=== PATIENT | male | born 1955 | race Caucasian/White ===

== ENCOUNTER 2016-10-03 14:55 | Emergency (ER) | payer MEDICARE, OTHER ==
[~2016-10-03] VITALS: Ht 180.3 cm; Wt 126.6 kg
[~2016-10-03 14:55] MED LIST: IPRA14.7 INH; METO25TA PO
[2016-10-03 15:16] VITALS: BP 156/86
[2016-10-03] MEDS ORDERED: INSU10SU8 SUBQ (15:24)
[2016-10-03] MEDS ORDERED: HYDROcodone/APAP 10/325 MG 1 TAB TAB PO PRN (16:40)
--- NOTE | 2016-10-03 17:19 | NUR ---
61/M BIB FRIEND C/O SKIN REDNESS AND SWELLING UNDER RIGHT AXILLARY AREA X 1 DAY. PT STAES HE HELPED A FRIEND CLEAN OUT THEIR GARAGE LAST NIGHT, NOTICED SKIN REDNESS AND SWELLING UNDER RIGHT AXILLARY AREA THIS AM. HX DM, HTN. PT DENIES N/V/D; SKIN IS PINK/WARM/DRY; AAOX4 WITH EVEN AND STEADY GAIT; LUNGS CLEAR BL; HR EVEN AND REGULAR; PT DENIES ANY FEVER, CP, SOB, OR COUGH AT THIS TIME; PATIENT STATES PAIN OF 7/10 AT THIS TIME. PATIENT POSITIONED FOR COMFORT; HOB ELEVATED; BEDRAILS UP X2; BED DOWN. ER MD MADE AWARE OF PT STATUS.
[2016-10-03] MEDS ORDERED: LIDOCAINE 2% 1000 MG/50 ML VIAL INJ ONE (17:35)
[2016-10-03 18:10] VITALS: BP 157/87
--- NOTE | 2016-10-03 18:10 | NUR ---
Patient discharged with v/s stable. Written and verbal after care instructions given and explained. Patient alert, oriented and verbalized understanding of instructions. Ambulatory with steady gait. All questions addressed prior to discharge. ID band removed. Patient advised to follow up with PMD. Rx of CLINDAMYCIN & NORCO given. Patient educated on indication of medication including possible reaction and side effects. Opportunity to ask questions provided and answered.
== END 2016-10-03 17:48 | disposition home or self-care (01) ==
LOC: MED 14:55
DX: L02.411 Cutaneous abscess of right axilla (principal); E11.9 Type 2 diabetes mellitus without complications
CPT/HCPCS: 10060; 82948; 99283; J2001

== ENCOUNTER 2018-03-20 11:19 | Emergency (ER) | payer OTHER ==
[~2018-03-20] VITALS: Ht 180.3 cm; Wt 122.5 kg
[~2018-03-20 11:19] MED LIST changes: +INSU10SU8 SUBQ
[2018-03-20 11:40] VITALS: BP 101/76
--- NOTE | 2018-03-20 11:40 | NUR ---
pt amb to bed 11
[2018-03-20] MEDS ORDERED: ONDANSETRON 4 MG/2 ML VIAL IVP ONE (11:45)
[2018-03-20] MEDS ORDERED: NACL 0.9% 1,000 ML IV SCH (11:45)
[2018-03-20] MEDS ORDERED: MORPHINE SULFATE 4 MG/ML SYR IM ONE (11:45)
--- NOTE | 2018-03-20 11:47 | NUR ---
Patient being evaluated by physician at bedside.
--- NOTE | 2018-03-20 12:02 | NUR ---
Patient returned from CT scan. RN re-evaluating patient at bedside.
--- NOTE | 2018-03-20 12:10 | NUR ---
62y/m bib self c/o generalized abd pain with dysuria x 3 days, denies n/v/d, +fevers. pt states" he has not eatten anything in 3 days due to ab pain. bed down; bedrail up x 1; er md aware and notified of pt status. med hx: dm, htn, heart attacks unknown what type rx: insulin
[2018-03-20 12:24] LABS: BASOPHILS % (AUTO) 0.2 % (0.0-2.0); EOSINOPHILS # (AUTO) 0.1 K/uL (0-0.4); EOSINOPHILS % (AUTO) 0.7 % (0.0-4.0); HEMATOCRIT 43.5 % (36-52); LYMPHOCYTES # (AUTO) 1.1 K/uL (2.0-11.5); LYMPHOCYTES % (AUTO) 8.4 % (20.5-51.1); MEAN CORPUSCULAR HEMOGLOBIN 30 pg (27-31); MEAN CORPUSCULAR HGB CONC 34 g/dL (33-37); MEAN CORPUSCULAR VOLUME 87.7 fL (80-94); NEUTROPHILS # (AUTO) 10.5 K/uL (1.8-7.7); NEUTROPHILS % (AUTO) 82.7 % (42.2-75.2); PLATELET COUNT (AUTO) 124 K/uL (140-450); RED BLOOD CELL COUNT(AUTO) 4.97 MIL/uL (4.20-6.10); RED CELL DISTRIBUTION WIDTH 13.4 % (11.6-13.7); WHITE BLOOD COUNT (AUTO) 12.7 K/uL (4.8-10.8)
[2018-03-20 12:36] LABS: APPEARANCE,URINE HAZY (CLEAR); BILIRUBIN,URINE NEGATIVE (NEGATIVE); COLOR,URINE YELLOW (YELLOW); LEUKOCYTE ESTERASE ,URINE 1+ (NEGATIVE); NITRITE, URINE POSITIVE (NEGATIVE); UGLUCOSE 3+ (NEGATIVE)
[2018-03-20 12:48] LABS: ANION GAP 15.2 (8-16); CARBON DIOXIDE 22.7 mmol/L (21-32); CREATININE 0.9 mg/dL (0.7-1.3); POTASSIUM 3.9 mmol/L (3.5-5.1)
[2018-03-20 12:52] LABS: WBC,URINE 16-25 (MOD) /HPF (0-5)
[2018-03-20 12:53] LABS: BLOOD, URINE TRACE (NEGATIVE); RBC,URINE 0-5 (RARE) /HPF (0-5)
[2018-03-20 13:03] LABS: ALBUMIN 3.4 g/dL (3.4-5.0); TOTAL BILIRUBIN 1.9 mg/dL (0.0-1.0)
[2018-03-20 13:31] VITALS: BP 105/78
--- NOTE | 2018-03-20 13:31 | NUR ---
Patient discharged with v/s stable. Written and verbal after care instructions given and explained. Patient alert, oriented and verbalized understanding of instructions. Ambulatory with steady gait. All questions addressed prior to discharge. ID band removed. Patient advised to follow up with PMD. Rx of keflex and tylenol #3 given. Patient educated on indication of medication including possible reaction and side effects. Opportunity to ask questions provided and answered.
== END 2018-03-20 13:31 | disposition home or self-care (01) ==
LOC: MED 11:19
DX: N39.0 Urinary tract infection, site not specified (principal); J44.9 Chronic obstructive pulmonary disease, unspecified; I10 Essential (primary) hypertension; Z88.0 Allergy status to penicillin; Z79.899 Other long term (current) drug therapy; Z79.4 Long term (current) use of insulin
CPT/HCPCS: 36415; 74176; 80053; 81001; 85025; 87086; 87186; 96372; 96374; 99285; J2270; J2405; J7030

== ENCOUNTER 2018-10-07 16:31 | Emergency (ER) | payer OTHER ==
[~2018-10-07] VITALS: Ht 180.3 cm; Wt 117.9 kg
[~2018-10-07 16:31] MED LIST changes: -INSU10SU8 SUBQ; +NOV7030 SUBQ
[2018-10-07 16:40] VITALS: BP 107/89
--- NOTE | 2018-10-07 16:55 | NUR ---
63 Y MALE PT C/O NON-PRODUCTIVE COUGH SINCE LAST SUNDAY, NOW REPORTS CHEST PAIN 8/10 SINCE 1000. CHEST PAIN RADIATES TO BACK. PT REPORTS FEVER, NO FEVER AT THIS TIME. +NAUSEA, +VOMITING WHEN PT EATS. STATES HE HASNT ATE FOR THE PAST 4 DAYS. VSS. AA0X4. PT PLACED ON MONITOR. BED IS DOWN, LOCKED, BED RAIL X 1, ERMD NOTIFIED. PMH---DM (299 ON TRIAGE) ALLERGIES---PCN
[2018-10-07] MEDS ORDERED: NACL 0.9% 500 ML IV SCH (18:18)
[2018-10-07] MEDS ORDERED: LEVOFLOXACIN 500 MG TAB PO ONE (18:20)
[2018-10-07] MEDS ORDERED: methylPREDNISolone SS 125 MG/2 ML VIAL IVP ONE (18:20)
[2018-10-07] MEDS ORDERED: HYDROcodone/APAP 5/325 MG 1 TAB TAB PO ONE (18:20)
[2018-10-07] MEDS ORDERED: ALBUTEROL SULFATE/IPRATROPIU 3 ML SOL IH ONE (18:20)
[2018-10-07] MEDS ORDERED: hydrOXYzine HCL 25 MG TAB PO ONE (18:20)
--- NOTE | 2018-10-07 18:20 | NUR ---
DR HUDSON AT BEDSIDE
--- NOTE | 2018-10-07 18:35 | NUR ---
Respiratory therapist at bedside for breathing treatment and ABG.
--- NOTE | 2018-10-07 18:44 | NUR ---
LAB AT BEDSIDE
[2018-10-07 19:02] LABS: BASOPHILS % (AUTO) 0.9 % (0.0-2.0); EOSINOPHILS # (AUTO) 0.1 K/uL (0-0.4); EOSINOPHILS % (AUTO) 2.7 % (0.0-4.0); HEMATOCRIT 47.1 % (36-52); HEMOGLOBIN 16.5 g/dL (12.0-18.0); LYMPHOCYTES # (AUTO) 1.4 K/uL (2.0-11.5); LYMPHOCYTES % (AUTO) 32.8 % (20.5-51.1); MEAN CORPUSCULAR HEMOGLOBIN 30 pg (27-31); MEAN CORPUSCULAR HGB CONC 35 g/dL (33-37); MEAN CORPUSCULAR VOLUME 86.7 fL (80-94); MONOCYTES # (AUTO) 0.8 K/uL (0.8-1.0); MONOCYTES % (AUTO) 17.9 % (1.7-9.3); NEUTROPHILS # (AUTO) 1.9 K/uL (1.8-7.7); NEUTROPHILS % (AUTO) 45.7 % (42.2-75.2); PLATELET COUNT (AUTO) 147 K/uL (140-450); RED BLOOD CELL COUNT(AUTO) 5.44 MIL/uL (4.20-6.10); RED CELL DISTRIBUTION WIDTH 13.1 % (11.6-13.7); WHITE BLOOD COUNT (AUTO) 4.2 K/uL (4.8-10.8)
[2018-10-07 19:09] LABS: MAGNESIUM 2.4 mg/dL (1.8-2.4)
--- NOTE | 2018-10-07 19:12 | NUR ---
PT STILL UNABLE TO URINATE AT THIS TIME
--- NOTE | 2018-10-07 19:12 | NUR ---
REPORT GIVEN TO CASSIE TREJO
[2018-10-07 19:19] LABS: ANION GAP 13.7 (8-16); CARBON DIOXIDE 23.9 mmol/L (21-32); CREATININE 0.8 mg/dL (0.7-1.3); POTASSIUM 3.6 mmol/L (3.5-5.1)
[2018-10-07 19:22] LABS: PROTHROMBIN TIME 10.7 secs (10.8-13.4)
[2018-10-07 19:33] LABS: ALBUMIN 3.1 g/dL (3.4-5.0); TOTAL BILIRUBIN 1.1 mg/dL (0.0-1.0)
--- NOTE | 2018-10-07 19:41 | NUR ---
X-Ray at bedside.
[2018-10-07 19:53] VITALS: BP 110/91
--- NOTE | 2018-10-07 19:53 | NUR ---
Patient discharged with v/s stable. Written and verbal after care instructions given and explained. Patient alert, oriented and verbalized understanding of instructions. Ambulatory with steady gait. All questions addressed prior to discharge. ID band removed. Patient advised to follow up with PMD. Rx of LEVAQUIN, PREDNISONE, CODEINE PHOSPHATE given. Patient educated on indication of medication including possible reaction and side effects. Opportunity to ask questions provided and answered.
== END 2018-10-07 19:53 | disposition home or self-care (01) ==
LOC: MED 16:31
DX: J44.1 Chronic obstructive pulmonary disease with (acute) exacerbation (principal); F17.210 Nicotine dependence, cigarettes, uncomplicated; I10 Essential (primary) hypertension; E11.9 Type 2 diabetes mellitus without complications; Z79.4 Long term (current) use of insulin; Z79.899 Other long term (current) drug therapy; Z88.0 Allergy status to penicillin
CPT/HCPCS: 36415; 36600; 71045; 80053; 83605; 83735; 83880; 84484; 85025; 85379; 85610; 85730; 87040; 93005; 94640; 94760; 96374; 99284; G0482; J2930; J7030; J7620; Q0092; 82803